=== PATIENT | female | born 1955 | race Hispanic/Latino ===

== ENCOUNTER → 2017-12-03 | Outpatient (CLI) | payer OTHER ==
--- NOTE | 2017-12-11 08:20 | Diagnostic Imaging Report ---
#[id number] - [facility] #BILATERAL DIGITAL SCREENING MAMMOGRAM WITH CAD: 12/03/2017 CLINICAL: Routine screening. Comparison is made to exam dated: 07/26/2015 mammogram - [facility]. Current study contains 4 films. The tissue of both breasts is heterogeneously dense. This may lower the sensitivity of mammography. Current study was also evaluated with a Computer Aided Detection (CAD) system. There are benign calcifications in both breasts. No significant masses, calcifications, or other findings are seen in either breast. There has been no significant interval change. IMPRESSION: BENIGN There is no mammographic evidence of malignancy. A 1 year screening mammogram is recommended. The patient will be notified by letter of the results. Gabe alberts/donaldo:12/10/2017 09:17:35 Support Analyst: vIana PEGUERO(Yuan)(M), [facility] letter sent: Compared to Prior B9 Mammogram BI-RADS: 2 Benign
== END ==
LOC: MAMMO 12:47
PROVIDERS: ATTEND Internal Medicine
DX: Z12.31 Encounter for screening mammogram for malignant neoplasm of breast (principal)

== ENCOUNTER → 2018-06-11 | Outpatient (CLI) | payer OTHER ==
[~2018-06-11] MED LIST: IOPAMIDOL 370 MG/ML 200 ML INFUS..BTL INJ ONE; SODIUM CHLORIDE 0.9% 50ML 50 ML ONE
[2018-06-11 10:06] LABS: BLOOD UREA NITROGEN 11 mg/dL (7-26); BUN/CREATININE RATIO 17 (6-25); CREATININE, SERUM 0.63 mg/dL (0.57-1.11); EST GLOMERULAR FILTRATION RATE > 60 ML/MIN (60-)
--- NOTE | 2018-06-11 11:10 | Diagnostic Imaging Report ---
PROCEDURE: CT scan of the chest WITH intravenous contrast, using standard protocol. TECHNIQUE: The chest was scanned utilizing a multidetector helical scanner from the lung apex through the level of the adrenal glands after the IV administration of 100 cc of Isovue 370. Coronal and sagittal multiplanar reformations were obtained. COMPARISON: None. INDICATIONS: SOLITARY PULMONARY NODULE FINDINGS: Lines/tubes: None. Lungs and Airways: 5 mm solid noncalcified nodule in the right lower lobe (series 3 image 70). No additional pulmonary nodules. No airspace consolidations, fibrotic changes, or bronchiectasis. Pleura: No pleural effusion or pneumothorax. Heart and mediastinum: Visualized portions of the thyroid gland appear normal. No axillary, hilar, or mediastinal lymphadenopathy. No ectasia or aneurysmal dilatation of the thoracic aorta. Great vessel origins are normal in caliber and configuration. The pulmonary outflow tract is of normal caliber. No pericardial effusion. Soft tissues: No focal soft tissue abnormalities. Abdomen: Simple cyst in hepatic segment 2, average internal attenuation less than 10 Hounsfield units. Small calculi in the gallbladder without wall thickening. Pancreas, adrenals, and kidneys are unremarkable in their visualized portions. Bones: No osseous destructive lesions. Mild multilevel degenerative disc changes of the visualized lower cervical and thoracic spine. IMPRESSION: 5 mm solid noncalcified right lower lobe pulmonary nodule. A followup CT scan of the chest without contrast may be obtained in 12 months if the patient has a history of tobacco use or is at otherwise increased risk of malignancy per Fleischner society 2017 guidelines. Cholelithiasis. Dictated by: Eren Romero M.D. on 06/11/2018 at 11:16 Electronically approved by: Eren Romero M.D. on 06/11/2018 at 11:16
== END ==
LOC: CT 09:10
PROVIDERS: ATTEND Internal Medicine
DX: R91.1 Solitary pulmonary nodule (principal)
CPT/HCPCS: 36415; 71260; 82565; 84520; Q9967

== ENCOUNTER → 2019-04-16 | Outpatient (CLI) | payer OTHER ==
--- NOTE | 2019-04-17 08:18 | Diagnostic Imaging Report ---
EXAMINATION: Bone mineral density study. COMPARISON: None. HISTORY: Screening for osteoporosis DISCUSSION: Evaluation of the left hip and lumbar spine was performed utilizing a DEXA Hologic bone densitometer. The study is technically adequate. The left hip total bone mineral density is 1.007 gm/cm2, the T-score is 0.3, and the Z-score is 1.3. The left hip femoral neck bone mineral density is 0.810 gm/cm2, the T-score is -0.5, and the Z-score is 0.8. The lumbar spine total bone mineral density is 0.885 gm/cm2, the T-score is -1.5, and the Z-score is 0.0. IMPRESSION: 1. WHO classification of normal bone mineral density for the left hip with no increased risk of fracture. 10 year major osteoporotic fracture risk 3.6% 2. WHO classification of osteopenia for the lumbar spine with increased risk of fracture. The patient's fracture risk is compared to an age-matched control. Medical evaluation for secondary causes of low bone bone mineral density may be appropriate. Correlate clinically for the necessity and timing of the next bone mineral density study. National Osteoporosis Foundation recommendations: Initiate therapy to reduce fracture risk in postmenopausal women with -BMD t-scores below -2.0 by central DXA with no risk factors -BMD t-scores below -1.5 by central DXA with one or more risk factors (first deg relative with hip fracture, prior personal fracture, low body weight, smoking) -A prior vertebral or hip fracture AACE (Clinical Endocrinology) recommends treating the following: Postmenopausal women who have osteoporosis as diagnosed by fragility fractures or t scores -2.5 or below Postmenopausal women who have risk factors (including fh of hip fracture, low body weight, smoking, risk of falling, high bone turnover, advancing age) and borderline low BMD T scores of -1.5 or below Adequate intake of calcium (at least 1200mg/day) and vitamin D (400-800 IU/day). Regular weight bearing and muscle - strengthening exercises Avoid smoking and excessive alcohol Signed by: Dr. Guerrero Oconnor M.D. on 04/17/2019 8:14 AM
--- NOTE | 2019-04-20 08:42 | Diagnostic Imaging Report ---
#[id number] - [facility] #BILATERAL DIGITAL SCREENING MAMMOGRAM WITH CAD: 04/16/2019 CLINICAL: Routine screening. Comparison is made to exams dated: 12/03/2017 mammogram and 07/26/2015 mammogram - [facility]. Current study contains 4 films. There are scattered fibroglandular elements in both breasts. Current study was also evaluated with a Computer Aided Detection (CAD) system. Benign appearing calcifications are noted bilaterally. No significant masses, calcifications, or other findings are seen in either breast. IMPRESSION: BENIGN There is no mammographic evidence of malignancy. A 1 year screening mammogram is recommended. The patient will be notified by letter of the results. MADONNA REIS M.D. ct/penrad:04/17/2019 16:47:02 Crew Supervisor: Ivana PEGUERO(Yuan)(Alli), [facility] letter sent: Normal Exam Mammogram BI-RADS: 2 Benign
== END ==
LOC: MAMMO 09:40
PROVIDERS: ATTEND Internal Medicine
DX: Z12.31 Encounter for screening mammogram for malignant neoplasm of breast (principal); M85.80 Other specified disorders of bone density and structure, unspecified site
CPT/HCPCS: 77067; 77080

== ENCOUNTER → 2020-06-27 | Outpatient (CLI) | payer OTHER ==
--- NOTE | 2020-06-27 14:10 | Diagnostic Imaging Report ---
EXAM: CT Chest WITHOUT intravenous contrast 06/27/2020 12:05 PM INDICATION: Pulmonary nodule COMPARISON: Chest CT 06/11/2018 TECHNIQUE: Chest was scanned utilizing a multidetector helical scanner from the lung apex through the level of the adrenal glands without administration of IV contrast. Coronal and sagittal reformations were obtained. Routine protocol was performed. IV CONTRAST: None RADIATION DOSE: Total DLP: 239 mGy*cm. Dose modulation, iterative reconstruction, and/or weight based adjustment of the mA/kV was utilized to reduce the radiation dose to as low as reasonably achievable. COMPLICATIONS: None FINDINGS: LINES/ TUBES: None. LUNGS AND AIRWAYS: The central airways are patent. No focal consolidation or pulmonary edema. Unchanged 5 mm posterior right lower lobe pulmonary nodule (series 2 image 69). No new or enlarging suspicious pulmonary nodules. PLEURA: The pleural spaces are clear. HEART AND MEDIASTINUM: The thyroid gland is normal. No mediastinal, hilar or axillary lymphadenopathy. The heart is normal in size.. There is no pericardial effusion. Minimal scattered aortic atherosclerotic calcifications. UPPER ABDOMEN: Unchanged left hepatic cyst. No acute findings in the upper abdomen. BONES: No acute osseous injury. No suspicious lytic or blastic lesions. SOFT TISSUES: Unremarkable. IMPRESSION: No new or enlarging suspicious pulmonary nodules. Previously seen 5 mm right lower lobe pulmonary nodule appears unchanged from 06/11/2018. No further follow-up imaging is necessary. Signed by: Scotty Camargo MD on 06/27/2020 2:06 PM
== END ==
LOC: CT 11:41
PROVIDERS: ATTEND Internal Medicine
DX: Z12.31 Encounter for screening mammogram for malignant neoplasm of breast (principal); R91.1 Solitary pulmonary nodule
CPT/HCPCS: 71250; 77067

== ENCOUNTER → 2021-12-14 | Outpatient (CLI) | payer OTHER | LOC: MAMMO 14:57 | PROVIDERS: ATTEND Internal Medicine | DX: Z12.31 Encounter for screening mammogram for malignant neoplasm of breast (principal) | CPT/HCPCS: 77067 ==

== ENCOUNTER → 2022-08-14 | Outpatient (CLI) | payer OTHER | LOC: MAMMO 09:04 | PROVIDERS: ATTEND Internal Medicine | DX: Z12.31 Encounter for screening mammogram for malignant neoplasm of breast (principal) ==

== ENCOUNTER → 2022-08-21 | Outpatient (CLI) | payer OTHER | LOC: DX 09:55 | PROVIDERS: ATTEND Internal Medicine | DX: M85.88 Other specified disorders of bone density and structure, other site (principal) | CPT/HCPCS: 77080 ==

== ENCOUNTER → 2023-01-17 | Day surgery (SDC) | payer OTHER ==
[2023-01-08 10:38] LABS: BASOPHILS # (AUTO) 0.1 (0.0-0.1); BASOPHILS % 0.5 % (0.0-1.0); EOSINOPHILS # (AUTO) 0.3 (0.0-0.4); EOSINOPHILS % 2.4 % (0.0-6.0); HEMATOCRIT 34.2 % (34.2-44.1); HEMOGLOBIN 11.2 g/dL (12.0-16.0); LYMPHOCYTES # (AUTO) 4.7 (1.0-3.2); LYMPHOCYTES % 36.3 % (18.0-39.1); MEAN CORPUSCULAR HEMOGLOBIN 28.6 pg (28-32); MEAN CORPUSCULAR HGB CONC 32.7 g/dL (31-35); MEAN CORPUSCULAR VOLUME 87.5 fL (81-99); MONOCYTES # (AUTO) 0.6 (0.2-0.8); MONOCYTES % 4.9 % (4.4-11.3); NEUTROPHILS # (AUTO) 7.1 (2.1-6.9); NEUTROPHILS % 55.7 % (38.7-80.0); PLATELET COUNT 332 x10e3/uL (140-360); RED BLOOD COUNT 3.91 x10e6/uL (3.6-5.1); RED CELL DISTRIBUTION WIDTH 13.7 % (11.7-14.4)
[~2023-01-17] MED LIST changes: +ASPIRIN EC81 MG PO; +ATORVASTATIN CA20 MG PO; +FOLIC ACID0.4 MG PO; +GLIPIZIDE ER5 MG PO; -IOPAMIDOL 370 MG/ML 200 ML INFUS..BTL INJ ONE; +LACTATED RINGER'S 1,000 ML ONE; +LIDOCAINE HCL 2% LOCAL INJ 5 ML SDV VIAL INJ ONE; +LOSARTAN POTASS25 MG PO; +METFORMIN HCL850 MG PO; +METOPROLOL SUCC25 MG PO; +NEURONTIN300 MG PO; +NIFEDIPINE10 MG PO; +PROPOFOL IV EMULSION 10 MG/ML 20 ML VIAL ONE; -SODIUM CHLORIDE 0.9% 50ML 50 ML ONE
[2023-01-17 08:45] VITALS: BP 128/75
== END | disposition home or self-care (01) ==
LOC: OR 07:32
PROVIDERS: ATTEND Internal Medicine Gastroenterology
DX: Z12.11 Encounter for screening for malignant neoplasm of colon (principal); D12.3 Benign neoplasm of transverse colon; K64.8 Other hemorrhoids; E11.9 Type 2 diabetes mellitus without complications; I10 Essential (primary) hypertension; Z01.810 Encounter for preprocedural cardiovascular examination; Z01.812 Encounter for preprocedural laboratory examination; Z68.31 Body mass index [BMI] 31.0-31.9, adult
CPT/HCPCS: 36415 ×2; 45380; 82948; 85025; 88305; 93005; J2001; J2704; J7121; 45378; 45384

== ENCOUNTER → 2023-02-27 | Outpatient (CLI) | payer MEDICARE ==
[~2023-02-27] MED LIST changes: -LACTATED RINGER'S 1,000 ML ONE; -LIDOCAINE HCL 2% LOCAL INJ 5 ML SDV VIAL INJ ONE; -PROPOFOL IV EMULSION 10 MG/ML 20 ML VIAL ONE
== END ==
LOC: MAMMO 08:37
PROVIDERS: ATTEND Internal Medicine
DX: Z12.31 Encounter for screening mammogram for malignant neoplasm of breast (principal)
CPT/HCPCS: 77067

== ENCOUNTER → 2024-11-30 | Outpatient (REF) | payer MEDICARE | LOC: DX 11:55 | PROVIDERS: ATTEND Internal Medicine | DX: M85.88 Other specified disorders of bone density and structure, other site (principal) | CPT/HCPCS: 77080 ==

== ENCOUNTER → 2025-02-09 | Outpatient (REF) | payer MEDICARE | LOC: MAMMO 09:12 | PROVIDERS: ATTEND Internal Medicine | DX: Z12.31 Encounter for screening mammogram for malignant neoplasm of breast (principal) | CPT/HCPCS: 77067 ==